=== PATIENT | female | born 2000 | race Caucasian/White ===

== ENCOUNTER 2021-11-25 12:35 | Emergency (ER) | payer SELFPAY ==
[~2021-11-25] VITALS: Ht 160 cm; Wt 105.7 kg
[2021-11-25 13:04] LABS: BILIRUBIN,URINE NEGATIVE (NEGATIVE); CLARITY,URINE CLEAR; COLOR,URINE YELLOW; GLUCOSE, URINE (UA) NEGATIVE (NEGATIVE); KETONES,URINE NEGATIVE (NEGATIVE); LEUKOCYTE ESTERASE ,URINE NEGATIVE (NEGATIVE); NITRITE,URINE NEGATIVE (NEGATIVE); PH,URINE 7.5 (5-9); PROTEIN,URINE TRACE (NEGATIVE)
[2021-11-25 13:04] LABS: BASOPHILS # (AUTO) 0.1 10^3/uL (0.0-0.1); BASOPHILS % (AUTO) 0 % (0-10); EOSINOPHILS % (AUTO) 0 % (0-10); HEMATOCRIT 44 % (35-52); HEMOGLOBIN 15.4 g/dL (11.5-16.0); LYMPHOCYTES # (AUTO) 3.5 10^3/uL (1.0-4.0); LYMPHOCYTES % (AUTO) 25 % (12-44); MEAN CORPUSCULAR HEMOGLOBIN 30 pg (25-34); MEAN CORPUSCULAR HGB CONC 35 g/dL (32-36); MEAN CORPUSCULAR VOLUME 86 fL (80-99); MEAN PLATELET VOLUME 8.8 fL (9.0-12.2); MONOCYTES # (AUTO) 0.4 10^3/uL (0.0-1.0); MONOCYTES % (AUTO) 3 % (0-12); NEUTROPHILS # (AUTO) 9.8 10^3/uL (1.8-7.8); NEUTROPHILS % (AUTO) 71 % (42-75); PLATELET COUNT 337 10^3/uL (130-400); WHITE BLOOD COUNT 13.9 10^3/uL (4.3-11.0)
[2021-11-25] MEDS ORDERED: morphine INJ 10 MG/ML 1ML (SYR OR VIAL) IVP STA (13:09)
[2021-11-25] MEDS ORDERED: ONDANSETRON 4 MG/2 ML (SDV) Z0FRAN IVP ONE (13:15)
[2021-11-25] MEDS ORDERED: NS IV 1000 ML 1,000 ML IV SCH (13:15)
[2021-11-25 13:17] LABS: BACTERIA,URINE TRACE /HPF
[2021-11-25 13:20] LABS: ALANINE AMINOTRANSFERASE 136 U/L (0-55); ALKALINE PHOSPHATASE 83 U/L (40-136); BILIRUBIN,TOTAL 0.5 MG/DL (0.1-1.0); BUN/CREATININE RATIO 24; CARBON DIOXIDE 25 MMOL/L (21-32); CHLORIDE 96 MMOL/L (98-107); CREATININE SERUM 0.51 MG/DL (0.60-1.30); GFR ESTIMATED 136; GLUCOSE 265 MG/DL (70-105); POTASSIUM 4.6 MMOL/L (3.6-5.0); SODIUM 134 MMOL/L (135-145); TOTAL PROTEIN 8.8 GM/DL (6.4-8.2)
[2021-11-25 13:21] LABS: ALBUMIN 4.9 GM/DL (3.2-4.5)
--- NOTE | 2021-11-25 13:48 | ED Abdominal Pain ---
General Chief Complaint: Abdominal/GI Problems Stated Complaint: ABD PAIN; VOMITING; DIARRHEA Nursing Triage Note: PT AMBULATE TO ROOM FS05 WITH C/O ABD PAIN STARTING AT 0500 AND N/V STARTING AT 0840 Source of Information: Patient Exam Limitations: No Limitations History of Present Illness Date Seen by Provider: Nov 25, 2021 Time Seen by Provider: 12:45 Initial Comments Patient is a 21-year-old female presents with cute onset lower abdominal pain with nausea vomiting and diarrhea starting approximately 6 hours prior to ED arrival. Pain is diffuse cramping waxes and wanes worse with palpation. Pain is moderate to severe nonradiating is nonmigratory. It is not improved with position change or movement. Patient is unable to perform position of comfort vomitus contains stomach contents. No hematemesis coffee-ground emesis. No hematochezia or melena. No fever chills or sweats. No other acute symptoms or complaints. History of sporadic irregular menstrual periods. No prior abdominal surgeries. Timing/Duration: 4-6 Hours Severity/Quality: Moderate Location: Other Radiation: Other Activities at Onset: Other Modifying Factors: Improves With Other Associated Symptoms: Other Allergies and Home Medications Allergies Coded Allergies: No Known Drug Allergies (Unverified , 11/25/21) Patient Home Medication List Home Medication List Reviewed: Yes Review of Systems Review of Systems Constitutional: see HPI EENTM: See HPI Respiratory: See HPI Cardiovascular: See HPI Gastrointestinal: See HPI Genitourinary: See HPI Musculoskeletal: see HPI Skin: see HPI Psychiatric/Neurological: See HPI Endocrine: See HPI Hematologic/Lymphatic: See HPI All Other Systems Reviewed Negative Unless Noted: No Past Rqlmeju-Bkmhfk-Xjziby Hx Patient Social History Tobacco Use?: No Smoking Status: Never a Smoker Smokeless Tobacco Frequency: Never a User Use of E-Cig and/or Vaping dev: No Use of E-Cig and/or Vaping Magdaleno: Never a User Substance use?: No Alcohol Use?: No Pt feels they are or have been: No Immunizations Up To Date COVID19 Vaccine Drums Teacher: MODERNA Physical Exam Vital Signs Vital Signs - First Documented 11/25/21 12:46 Temp 35.8 Pulse 104 Resp 19 B/P (MAP) 151/91 (111) O2 Delivery Room Air Capillary Refill : Less Than 3 Seconds Height/Weight/BMI Height: '" Weight: lbs. oz. kg; 41.00 BMI Method: General Appearance: moderate distress HEENT: PERRL/EOMI, normal ENT inspection Neck: non-tender, full range of motion Respiratory: lungs clear, normal breath sounds Cardiovascular: normal peripheral pulses, regular rate, rhythm Gastrointestinal: soft, distended, other (Moderate diffuse tenderness) Extremities: non-tender Back: normal inspection, no CVA tenderness Neurologic/Psychiatric: alert, oriented x 3 Skin: normal color Focused Exam Sepsis Stage: Ruled Out Progress/Results/Core Measures Results/Orders Lab Results Laboratory Tests Test 11/25/21 12:47 11/25/21 12:58 Range/Units Urine Color YELLOW Urine Clarity CLEAR Urine pH 7.5 5-9 Urine Specific [place] 1.020 1.016-1.022 Urine Protein TRACE H NEGATIVE Urine Glucose (UA) NEGATIVE NEGATIVE Urine Ketones NEGATIVE NEGATIVE Urine Nitrite NEGATIVE NEGATIVE Urine Bilirubin NEGATIVE NEGATIVE Urine Urobilinogen 0.2 < = 1.0 MG/DL Urine Leukocyte Esterase NEGATIVE NEGATIVE Urine RBC (Auto) TRACE-I H NEGATIVE Urine RBC 10-25 H /HPF Urine WBC NONE /HPF Urine Squamous Epithelial Cells 5-10 /HPF Urine Crystals NONE /LPF Urine Bacteria TRACE /HPF Urine Casts NONE /LPF Urine Mucus MODERATE H /LPF Urine Culture Indicated NO White Blood Count 13.9 H 4.3-11.0 10^3/uL Red Blood Count 5.10 3.80-5.11 10^6/uL Hemoglobin 15.4 11.5-16.0 g/dL Hematocrit 44 35-52 % Mean Corpuscular Volume 86 80-99 fL Mean Corpuscular Hemoglobin 30 25-34 pg Mean Corpuscular Hemoglobin Concent 35 32-36 g/dL Red Cell Distribution Width 12.4 10.0-14.5 % Platelet Count 337 130-400 10^3/uL Mean Platelet Volume 8.8 L 9.0-12.2 fL Immature Granulocyte % (Auto) 1 % Neutrophils (%) (Auto) 71 42-75 % Lymphocytes (%) (Auto) 25 12-44 % Monocytes (%) (Auto) 3 0-12 % Eosinophils (%) (Auto) 0 0-10 % Basophils (%) (Auto) 0 0-10 % Neutrophils # (Auto) 9.8 H 1.8-7.8 10^3/uL Lymphocytes # (Auto) 3.5 1.0-4.0 10^3/uL Monocytes # (Auto) 0.4 0.0-1.0 10^3/uL Eosinophils # (Auto) 0.0 0.0-0.3 10^3/uL Basophils # (Auto) 0.1 0.0-0.1 10^3/uL Immature Granulocyte # (Auto) 0.1 0.0-0.1 10^3/uL Sodium Level 134 L 135-145 MMOL/L Potassium Level 4.6 3.6-5.0 MMOL/L Chloride Level 96 L 98-107 MMOL/L Carbon Dioxide Level 25 21-32 MMOL/L Anion Gap 13 5-14 MMOL/L Blood Urea Nitrogen 12 7-18 MG/DL Creatinine 0.51 L 0.60-1.30 MG/DL Estimat Glomerular Filtration Rate 136 BUN/Creatinine Ratio 24 Glucose Level 265 H 70-105 MG/DL Calcium Level 10.0 8.5-10.1 MG/DL Corrected Calcium 8.5-10.1 MG/DL Total Bilirubin 0.5 0.1-1.0 MG/DL Aspartate Amino Transf (AST/SGOT) 142 H 5-34 U/L Alanine Aminotransferase (ALT/SGPT) 136 H 0-55 U/L Alkaline Phosphatase 83 40-136 U/L Total Protein 8.8 H 6.4-8.2 GM/DL Albumin 4.9 H 3.2-4.5 GM/DL My Orders Orders - MEDINA STEELE DO Cbc With Automated Diff (11/25/21 12:52) Comprehensive Metabolic Panel (11/25/21 12:52) Ua Culture If Indicated (11/25/21 12:52) Urine Bedside (11/25/21 12:52) Cbc With Automated Diff (11/25/21 13:09) Comprehensive Metabolic Panel (11/25/21 13:09) Morphine Injection (Morphine Injection (11/25/21 13:09) Ondansetron Injection (Zofran Injectio (11/25/21 13:15) Ns Iv 1000 Ml (Sodium Chloride 0.9%) (11/25/21 13:15) Ed Iv/Invasive Line Start (11/25/21 13:11) Medications Given in ED Current Medications Medications Dose Ordered Sig/Jack Route Start Time Stop Time Status Last Admin Dose Admin Ondansetron HCl 4 mg ONCE ONCE IVP 11/25/21 13:15 11/25/21 13:16 DC 11/25/21 13:15 4 MG Vital Signs/I&O 11/25/21 12:46 Temp 35.8 Pulse 104 Resp 19 B/P (MAP) 151/91 (111) O2 Delivery Room Air Blood Pressure Mean: 111 Departure Communication (Admissions) Patient's abdomen is soft, nonsurgical on repeat evaluation. She is resting comfortably and is pain-free. No right lower quadrant pain/tenderness. Suspect GI illness prevalent in the community. Recommendations are watchful waiting, supportive care and close PCP follow-up. Return precautions reviewed. Patient verbalizes understanding agreement discharge instructions prior to departure. Impression Primary Impression: Abdominal pain Additional Impression: Vomiting and diarrhea Disposition: HOME, SELF-CARE Condition: Stable Departure-Patient Inst. Decision time for Depature: 14:31 Referrals: GOGO ELENA MD (PCP) Primary Care Physician Patient Instructions: Nausea and Vomiting, Adult, Diarrhea, Adult ED Add. Discharge Instructions: You were evaluated in the emergency department for abdominal pain, vomiting and diarrhea. Lab was performed and is nondiagnostic. The exact cause of your symptoms has not been determined. Please go home and rest, drink clear liquids only for the next 6 to 12 hours then gradually advance to bland soft diet as tolerated. Take nausea medication as directed. Additionally, you may take Imodium OTC and Tylenol as needed for additional relief. Follow-up with your PCP in 1 to 2 days for reevaluation if symptoms persist. Return to the ED if new or worsening symptoms. All discharge instructions reviewed with patient and/or family. Voiced understanding. MEDINA STEELE DO Nov 25, 2021 13:47
[2021-11-25] MEDS ORDERED: ONDA4TAB11 PO (14:36)
[2021-11-25 14:55] VITALS: BP 134/76
== END 2021-11-25 14:55 | disposition home or self-care (01) ==
LOC: EDUNIT# 12:35 → ER FS 12:37
DX: R10.84 Generalized abdominal pain (principal); R19.7 Diarrhea, unspecified; R11.2 Nausea with vomiting, unspecified
CPT/HCPCS: 36415; 80053; 81000; 84703; 85025

== ENCOUNTER → 2022-03-01 | Outpatient (CLI) | payer OTHER ==
[~2022-03-01] MED LIST: CATHETER FLUSH 10 ML SYR IVP PRN; ONDA4TAB11 PO
--- NOTE | 2022-03-01 12:14 | Diagnostic Imaging Report ---
Indication: Right upper quadrant pain. Patient was a hoop maker 5.1 mCi technetium 99m Choletec intravenously and imaging over the abdomen was performed. At 60 minutes, the patient ingested 8 ounces Ensure and a gallbladder ejection fraction was calculated. There is homogeneous uptake of activity by the liver with prompt excretion of activity into the gallbladder and common duct. There is normal passage of activity into the small bowel. Gallbladder ejection fraction is normal at 50%. There does appear to be some activity within the stomach consistent with bile reflux. IMPRESSION: 1. Patent cystic duct and common bile duct. 2. Normal gallbladder ejection fraction of 50%. 3. Gastric activity consistent with bile reflux. Dictated by: Dictated on workstation # [id number]
== END ==
LOC: CARD 07:51
PROVIDERS: ATTEND Family Medicine
DX: R10.11 Right upper quadrant pain (principal)
CPT/HCPCS: 78227; A9537

== ENCOUNTER 2022-05-01 14:53 | Emergency (ER) | payer OTHER ==
[~2022-05-01] VITALS: Ht 160 cm; Wt 98.0 kg
[~2022-05-01 14:53] MED LIST changes: -CATHETER FLUSH 10 ML SYR IVP PRN
[2022-05-01 16:06] LABS: BASOPHILS # (AUTO) 0.1 10^3/uL (0.0-0.1); BASOPHILS % (AUTO) 1 % (0-10); EOSINOPHILS # (AUTO) 0.1 10^3/uL (0.0-0.3); EOSINOPHILS % (AUTO) 1 % (0-10); HEMATOCRIT 42 % (35-52); HEMOGLOBIN 14.7 g/dL (11.5-16.0); LYMPHOCYTES # (AUTO) 4.4 10^3/uL (1.0-4.0); LYMPHOCYTES % (AUTO) 37 % (12-44); MEAN CORPUSCULAR HEMOGLOBIN 30 pg (25-34); MEAN CORPUSCULAR HGB CONC 35 g/dL (32-36); MEAN CORPUSCULAR VOLUME 85 fL (80-99); MEAN PLATELET VOLUME 8.8 fL (9.0-12.2); MONOCYTES # (AUTO) 0.5 10^3/uL (0.0-1.0); MONOCYTES % (AUTO) 5 % (0-12); NEUTROPHILS # (AUTO) 6.7 10^3/uL (1.8-7.8); NEUTROPHILS % (AUTO) 56 % (42-75); PLATELET COUNT 286 10^3/uL (130-400); WHITE BLOOD COUNT 11.8 10^3/uL (4.3-11.0)
--- NOTE | 2022-05-01 16:08 | ED General ---
General Chief Complaint: Ear Problems Stated Complaint: LT EAR PAIN; DIZZINESS Nursing Triage Note: PT REPORTS EAR ISSUES AND DIZZINESS FOR 2 YEARS. Source of Information: Patient Exam Limitations: No Limitations (MONI HENDRICKS) History of Present Illness Date Seen by Provider: May 01, 2022 Time Seen by Provider: 15:12 Initial Comments This is a 22yo F with pmhx of DM, PCOS, and migraines who presents for left ear pain and "dizziness". Pt reports Lt ear pain for the past 3-4 days which is a dull ache. Endorses seeing "blue sparkles", nausea, headache, left eye pain, and shortness of air. Denies drainage from the ears, fever. Patient's "Dizziness" is clarified, and patient reports the feeling of lightheadedness and her body feeling light. She denies vertigo or dysequilibrium. This his been an issue for the past 2 years which she has been to urgent care and her PCP in the past for these symptoms with no reported workup and no resolution of symptoms. Patient's lightheadedness "hit her hard" to the point today that she did not feel comfortable driving or doing daily activities, felt as though she could have dropped and passed out. Endorses near syncope, denies syncopal events. Pt r eports that she will occasionally feel palpitations. At this moment, patient endorses left sided unilateral headache and left sided weakness. Timing/Duration: Other (Lt Ear pain x3-4d, Dizziness x2yr) Severity: Severe Associated Systoms: No Chest Pain, No Cough, No Diaphoresis, No Fever/Chills; Headaches, Nausea/Vomiting (endorse nausea, denies vomiting), Shortness of Air (MONI HENDRICKS) Initial Comments Patient reports she has had the symptoms in the past but this is her most significant episode. She occasionally feels lightheaded upon standing and sometimes has palpitations. She tends to have some variation of these events daily. Today on my exam she is noted to have very subtle left-sided decrease in strength, particularly with education program specialist and with flexion at the knee. Onset of symptoms was early this morning. (SAHIL MORGAN MD) Allergies and Home Medications Allergies Coded Allergies: No Known Drug Allergies (Unverified , 11/25/21) Patient Home Medication List Home Medication List Reviewed: Yes (SAHIL MORGAN MD) Ondansetron (Ondansetron Odt) 4 Mg Tab.rapdis, 4 MG PO Q6H Prescribed by: MEDINA STEELE on 11/25/21 1436 Review of Systems Review of Systems Constitutional: No chills, No diaphoresis, No dizziness; weakness (left upper and lower extremity), other (lightheadedness) Respiratory: No cough; short of breath Cardiovascular: No chest pain, No Hx of Intervention; palpitations Gastrointestinal: no symptoms reported (MONI HENDRICKS) EENTM: see HPI Genitourinary: no symptoms reported : No Musculoskeletal: see HPI Psychiatric/Neurological: See HPI (SAHIL MORGAN MD) Past Cuprdpm-Unsyjo-Ballrg Hx Patient Social History Tobacco Use?: No Use of E-Cig and/or Vaping dev: No Substance use?: No Alcohol Use?: No Pt feels they are or have been: No (MONI HENDRICKS) Past Medical History Neurological: Yes Headaches /Migraines Reproductive Disorders: Yes Female Reproductive Disorders: Polycystic Ovarian Dis Endocrine: Yes Diabetes, Non-Insulin dep (SAHIL MORGAN MD) Physical Exam Vital Signs Vital Signs - First Documented 05/01/22 15:09 Temp 36.3 Pulse 84 Resp 16 B/P (MAP) 141/85 (103) Pulse Ox 99 O2 Delivery Room Air (SAHIL MORGAN MD) Vital Signs Capillary Refill : Less Than 3 Seconds (MONI HENDRICKS) Height, Weight, BMI Height: '" Weight: lbs. oz. kg; 38.00 BMI Method: General Appearance: No Apparent Distress, WD/WN, Obese HEENT: PERRL/EOMI, TMs Normal, Normal ENT Inspection, Pharynx Normal Respiratory: Chest Non Tender, Lungs Clear, Normal Breath Sounds, No Accessory Muscle Use, No Respiratory Distress Cardiovascular: Regular Rate, Rhythm, No Edema, No Murmur, Normal Peripheral Pulses Gastrointestinal: Normal Bowel Sounds, No Organomegaly, No Pulsatile Mass, Non Tender, Soft Extremity: Normal Capillary Refill, Normal Inspection, Normal Range of Motion, Non Tender, No Calf Tenderness Neurologic/Psychiatric: Alert, Oriented x3, Normal Mood/Affect, 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 Norm as Tested, Motor Weakness (slight weakness of left knee flexion and left hand education program specialist strength), Other (Negative romberg test, heel to kimble, and finger to nose) Skin: Normal Color, Warm/Dry (MONI HENDRICKS) Progress/Results/Core Measures Suspected Sepsis SIRS Temperature: Pulse: 84 Respiratory Rate: 16 Blood Pressure 141 /85 Mean: 103 (MONI HENDRICKS) Results/Orders Lab Results Laboratory Tests Test 05/01/22 15:06 05/01/22 15:30 Range/Units Urine Color YELLOW Urine Clarity SL CLOUDY Urine pH 6.5 5-9 Urine Specific [place] 1.020 1.016-1.022 Urine Protein NEGATIVE NEGATIVE Urine Glucose (UA) NEGATIVE NEGATIVE Urine Ketones NEGATIVE NEGATIVE Urine Nitrite NEGATIVE NEGATIVE Urine Bilirubin NEGATIVE NEGATIVE Urine Urobilinogen 0.2 < = 1.0 MG/DL Urine Leukocyte Esterase NEGATIVE NEGATIVE Urine RBC (Auto) NEGATIVE NEGATIVE Urine RBC NONE /HPF Urine WBC 0-2 /HPF Urine Squamous Epithelial Cells 5-10 /HPF Urine Crystals NONE /LPF Urine Bacteria MODERATE H /HPF Urine Casts NONE /LPF Urine Mucus MODERATE H /LPF Urine Culture Indicated NO White Blood Count 11.8 H 4.3-11.0 10^3/uL Red Blood Count 4.87 3.80-5.11 10^6/uL Hemoglobin 14.7 11.5-16.0 g/dL Hematocrit 42 35-52 % Mean Corpuscular Volume 85 80-99 fL Mean Corpuscular Hemoglobin 30 25-34 pg Mean Corpuscular Hemoglobin Concent 35 32-36 g/dL Red Cell Distribution Width 13.0 10.0-14.5 % Platelet Count 286 130-400 10^3/uL Mean Platelet Volume 8.8 L 9.0-12.2 fL Immature Granulocyte % (Auto) 0 % Neutrophils (%) (Auto) 56 42-75 % Lymphocytes (%) (Auto) 37 12-44 % Monocytes (%) (Auto) 5 0-12 % Eosinophils (%) (Auto) 1 0-10 % Basophils (%) (Auto) 1 0-10 % Neutrophils # (Auto) 6.7 1.8-7.8 10^3/uL Lymphocytes # (Auto) 4.4 H 1.0-4.0 10^3/uL Monocytes # (Auto) 0.5 0.0-1.0 10^3/uL Eosinophils # (Auto) 0.1 0.0-0.3 10^3/uL Basophils # (Auto) 0.1 0.0-0.1 10^3/uL Immature Granulocyte # (Auto) 0.0 0.0-0.1 10^3/uL Sodium Level 141 135-145 MMOL/L Potassium Level 3.9 3.6-5.0 MMOL/L Chloride Level 102 98-107 MMOL/L Carbon Dioxide Level 26 21-32 MMOL/L Anion Gap 13 5-14 MMOL/L Blood Urea Nitrogen 14 7-18 MG/DL Creatinine 0.61 0.60-1.30 MG/DL Estimat Glomerular Filtration Rate 130 BUN/Creatinine Ratio 23 Glucose Level 148 H 70-105 MG/DL Calcium Level 9.8 8.5-10.1 MG/DL Corrected Calcium 8.5-10.1 MG/DL Magnesium Level 1.9 1.6-2.4 MG/DL Total Bilirubin 0.4 0.1-1.0 MG/DL Aspartate Amino Transf (AST/SGOT) 101 H 5-34 U/L Alanine Aminotransferase (ALT/SGPT) 129 H 0-55 U/L Alkaline Phosphatase 82 40-136 U/L Total Protein 8.0 6.4-8.2 GM/DL Albumin 4.7 H 3.2-4.5 GM/DL Serum Test, Qualitative NEGATIVE NEGATIVE (SAHIL MORGAN MD) My Orders Orders - SAHIL MORGAN MD Orthostatic Vital Signs (Adult (05/01/22 15:42) Cbc With Automated Diff (05/01/22 15:55) Comprehensive Metabolic Panel (05/01/22 15:55) Hcg,Qualitative Serum (05/01/22 15:55) Magnesium (05/01/22 15:55) Thyroid Analyzer (05/01/22 15:55) Ua Culture If Indicated (05/01/22 15:55) Ed Iv/Invasive Line Start (05/01/22 15:55) Ekg Tracing (05/01/22 15:55) Ct Head Wo (05/01/22 16:41) Ketorolac Injection (Toradol Injection) (05/01/22 17:45) (SAHIL MORGAN MD) Medications Given in ED Current Medications Medications Dose Ordered Sig/Jack Route Start Time Stop Time Status Last Admin Dose Admin Ketorolac Tromethamine 30 mg ONCE ONCE IVP 05/01/22 17:45 05/01/22 17:39 DC 05/01/22 17:39 30 MG (SAHIL MORGAN MD) Vital Signs/I&O 05/01/22 05/01/22 05/01/22 15:09 16:11 17:32 Temp 36.3 36.3 Pulse 84 82 84 88 97 Resp 16 16 B/P (MAP) 141/85 (103) 115/64 (81) 131/49 131/77 (95) 130/75 (93) Pulse Ox 99 99 O2 Delivery Room Air Room Air (SAHIL MORGAN MD) Vital Signs/I&O Capillary Refill : Less Than 3 Seconds (MONI HENDRICKS) Blood Pressure Mean: 103 Progress Note : Progress Note Patient was interviewed and examined. Orthostatic blood pressures were unremark able as follows: Lying 115/64, heart rate 82 Sitting 131/77, heart rate 88 Standing 130/75, heart rate 97 EKG was also reviewed and interpreted by me and unremarkable. Labs were obtained including CBC, CMP, magnesium, test, and urinalysis. All labs were interpreted as relatively unremarkable in regard to evaluation of her symptoms. Because of the subtle weakness noted on my exam, CT of the head was obtained. CT was unremarkable. Patient was treated with Toradol. She is ultimately discharged to outpatient follow-up. Her symptoms likely represent an atypical migraine. (SAHIL MORGAN MD) ECG Initial ECG Impression Date: May 01, 2022 Initial ECG Impression Time: 15:59 Initial ECG Rate: 84 Initial ECG Rhythm: Normal Sinus Initial ECG Intervals: Normal Initial ECG Impression: Normal Comment Normal sinus rhythm with no ST elevation or depression. No abnormal intervals or axis deviation. (SAHIL MORGAN MD) Diagnostic Imaging Diagonstic Imaging: CT Plain Films/CT/US/NM/MRI: head Comments NAME: JANETT SMALL MED REC#: [id number] PT STATUS: DEP ER : 2000 PHYSICIAN: SAHIL MORGAN MD ADMIT DATE: 05/01/22/ER FS Signed Date of Exam:05/01/22 CT HEAD WO INDICATION: Left-sided weakness. TECHNIQUE: Multiple contiguous axial images were obtained through the brain without the use of intravenous contrast. Auto Exposure Controls were utilized during the CT exam to meet ALARA standards for radiation dose reduction. COMPARISON: There is no prior CT for comparison. FINDINGS: There is no extra-axial fluid collection. No intracranial hemorrhage. No intracranial mass or mass effect. No midline shift. The ventricles are normal in size and position. There are no focal parenchymal abnormalities in the brain. Calvarial windows are unremarkable. IMPRESSION: Negative noncontrast brain CT. Dictated by: Dictated on workstation # [id number] Dict: 05/01/22 1659 Trans: 05/01/221737 PJE [id number] Interpreted by: MEGAN KIM MD Electronically signed by: MEGAN KIM MD 05/01/221737 (SAHIL MORGAN MD) Departure Impression Primary Impression: Headache Qualified Codes: R51.9 - Headache, unspecified Additional Impressions: Left-sided weakness Lightheadedness Disposition: 01 HOME, SELF-CARE Condition: Stable Departure-Patient Inst. Referrals: GOGO ELENA MD (PCP) Primary Care Physician Patient Instructions: Headache, Adult Add. Discharge Instructions: Follow-up with your primary care provider soon as possible. No specific diagnosis was identified in the emergency room today. It is possible you are having an atypical migraine. Discuss further work-up with your primary care provider. Some options for further work-up might include MRI of the brain, vitamin D level, neurology consult, etc. A thyroid function lab was drawn in the emergency room and was pending at the time of discharge. Please review with your primary care provider. For acute headaches you may take ibuprofen up to 600 mg every 6 hours as needed. You may also take Tylenol (acetaminophen) up to 1000 mg every 6 hours as needed. Drink plenty of clear liquids to stay well-hydrated. Eat a well-balanced diet. Return to the emergency room if you have worsening symptoms despite following these instructions. All discharge instructions reviewed with patient and/or family. Voiced understanding. Medical Student Attestation and Attending Note: I have personally interviewed and examined this patient along with Moni Hendricks, MS 4. I have reviewed student documentation including history, physical, and assessments. I agree with the documentation except where otherwise noted. Exam: General: Alert, oriented, no acute distress, well developed HEENT: Normocephalic and atraumatic, mucous membranes moist, normal tympanic membranes Heart: Regular rate and rhythm without murmur Lungs: Clear to auscultation bilaterally with normal effort Abdomen: Soft, nontender, nondistended, normal bowel sounds Neuropsych: Alert, oriented, normal [id number] and [id number], very subtle weakness of left education program specialist and left leg flexion at the knee in relation to the right, normal speech and hearing Skin: Warm and dry without rashes (SAHIL MORGAN MD) Copy Copies To 1: GOGO ELENA MD, ABRAHAM May 01, 2022 16:08 SAHIL MORGAN MD May 01, 2022 16:21
[2022-05-01 16:11] VITALS: BP_SYST 115; BP_SYST 130; BP_SYST 131; BP_DIAS 64; BP_DIAS 75; BP_DIAS 77
[2022-05-01 16:19] LABS: BILIRUBIN,URINE NEGATIVE (NEGATIVE); CLARITY,URINE SL CLOUDY; COLOR,URINE YELLOW; GLUCOSE, URINE (UA) NEGATIVE (NEGATIVE); KETONES,URINE NEGATIVE (NEGATIVE); LEUKOCYTE ESTERASE ,URINE NEGATIVE (NEGATIVE); NITRITE,URINE NEGATIVE (NEGATIVE); PH,URINE 6.5 (5-9); PROTEIN,URINE NEGATIVE (NEGATIVE)
[2022-05-01 16:28] LABS: BACTERIA,URINE MODERATE /HPF; WBC,URINE 0-2 /HPF
[2022-05-01 16:31] LABS: SODIUM 141 MMOL/L (135-145)
[2022-05-01 16:32] LABS: ALANINE AMINOTRANSFERASE 129 U/L (0-55); ALBUMIN 4.7 GM/DL (3.2-4.5); ALKALINE PHOSPHATASE 82 U/L (40-136); BILIRUBIN,TOTAL 0.4 MG/DL (0.1-1.0); BUN/CREATININE RATIO 23; CALCIUM 9.8 MG/DL (8.5-10.1); CARBON DIOXIDE 26 MMOL/L (21-32); CHLORIDE 102 MMOL/L (98-107); CREATININE SERUM 0.61 MG/DL (0.60-1.30); GFR ESTIMATED 130; GLUCOSE 148 MG/DL (70-105); MAGNESIUM 1.9 MG/DL (1.6-2.4); POTASSIUM 3.9 MMOL/L (3.6-5.0)
--- NOTE | 2022-05-01 17:04 | Diagnostic Imaging Report ---
INDICATION: Left-sided weakness. TECHNIQUE: Multiple contiguous axial images were obtained through the brain without the use of intravenous contrast. Auto Exposure Controls were utilized during the CT exam to meet ALARA standards for radiation dose reduction. COMPARISON: There is no prior CT for comparison. FINDINGS: There is no extra-axial fluid collection. No intracranial hemorrhage. No intracranial mass or mass effect. No midline shift. The ventricles are normal in size and position. There are no focal parenchymal abnormalities in the brain. Calvarial windows are unremarkable. IMPRESSION: Negative noncontrast brain CT. Dictated by: Dictated on workstation # [id number]
[2022-05-01 17:32] VITALS: BP 131/49
[2022-05-01] MEDS ORDERED: KETOROLAC 30 MG/ML VIAL IVP ONE (17:45)
[2022-05-02 14:57] LABS: TSH (THYROID ANALYZER) 0.88 UIU/ML (0.35-4.94)
== END 2022-05-01 17:39 | disposition home or self-care (01) ==
LOC: EDUNIT# 14:53 → ER FS 14:56
DX: R42 Dizziness and giddiness (principal); R53.1 Weakness; R51.9 Headache, unspecified
CPT/HCPCS: 36415; 70450; 80053; 81000; 83735; 84443; 84703; 85025; 93005

== ENCOUNTER → 2022-05-15 | Outpatient (CLI) | payer OTHER | LOC: CARD 11:48 | PROVIDERS: ATTEND Family Medicine | DX: R55 Syncope and collapse (principal) | CPT/HCPCS: 93225; 93226 ==

== ENCOUNTER 2022-06-21 22:40 | Emergency (ER) | payer OTHER ==
--- NOTE | 2022-06-21 22:56 | ED EENT ---
History of Present Illness General Chief Complaint: Ear Problems Stated Complaint: LEFT EAR ACHE History of Present Illness Date Seen by Provider: Jun 21, 2022 Time Seen by Provider: 22:54 Initial Comments 22-year-old female is here with complaints of left-sided tooth pain and left- sided ear pain. Patient went to the dentist 2 days ago and had x-rays done and was told that she would be called back to have her tooth extracted. Patient started to have left ear pain since then. Patient is crying and hysterical, and anxious. Patient's boyfriend is giving the history since patient is crying and will not talk. Denies fever and chills, foreign body or insects in the ear. Allergies and Home Medications Allergies Coded Allergies: No Known Drug Allergies (Unverified , 11/25/21) Patient Home Medication List Home Medication List Reviewed: Yes Ondansetron (Ondansetron Odt) 4 Mg Tab.rapdis, 4 MG PO Q6H Prescribed by: MEDINA STEELE on 11/25/21 7510 Review of Systems Review of Systems Constitutional: no symptoms reported Eyes: No Symptoms Reported Ears: See HPI, Pain Nose: no symptoms reported Mouth: see HPI, other (Dental) Throat: no symptoms reported Respiratory: no symptoms reported Cardiovascular: no symptoms reported Gastrointestinal: no symptoms reported Musculoskeletal: no symptoms reported Skin: no symptoms reported Neurological: No Symptoms Reported Hematologic/Lymphatic: No Symptoms Reported Immunological/Allergic: no symptoms reported Past Dtbdhru-Csqhaq-Funaxv Hx Patient Social History Tobacco Use?: No Use of E-Cig and/or Vaping dev: No Substance use?: No Alcohol Use?: No Pt feels they are or have been: No Past Medical History Neurological: Yes Headaches /Migraines Reproductive Disorders: Yes Female Reproductive Disorders: Polycystic Ovarian Dis Endocrine: Yes Diabetes, Non-Insulin dep Physical Exam Vital Signs Vital Signs - First Documented 06/21/22 22:47 Temp 37.3 Pulse 114 Resp 20 B/P (MAP) 178/142 (154) Pulse Ox 98 O2 Delivery Room Air Height, Weight, BMI Height: '" Weight: lbs. oz. kg; 38.00 BMI Method: General Appearance: WD/WN, no apparent distress, moderate distress, obese Ears: bilateral ear auricle normal, bilateral ear canal normal, bilateral ear TM normal Nose: normal inspection Mouth/Throat: dental tenderness (Impacted wisdom tooth on the left upper side, no dental caries seen) Neck: non-tender, full range of motion, supple Cardiovascular: regular rate, rhythm Respiratory: lungs clear Neurologic/Psychiatric: alert, oriented x 3, other (Patient is hysterical and crying) Skin: normal color Progress/Results/Core Measures Results/Orders My Orders Orders - EDMAR DELATORRE MD Ketorolac Injection (Toradol Injection) (06/21/22 23:15) Vital Signs/I&O 06/21/22 22:47 Temp 37.3 Pulse 114 Resp 20 B/P (MAP) 178/142 (154) Pulse Ox 98 O2 Delivery Room Air Progress Progress Note : Progress Note 1. IMPACTED WISDOM TOOTH: - Ear exam is normal - Toradol im STAT -Advised to take ibuprofen and Tylenol, and follow-up with a dentist as soon as possible Departure Impression Primary Impression: Impacted tooth Disposition: HOME, SELF-CARE Condition: Stable Departure-Patient Inst. Referrals: GOGO ELENA MD (PCP/Family) Primary Care Physician Patient Instructions: Dental Pain (DC), Impacted Tooth Add. Discharge Instructions: Follow-up with dentist ARTEMIO Tylenol and ibuprofen as needed for pain All discharge instructions reviewed with patient and/or family. Voiced understanding. EDMAR DELTAORRE MD Jun 21, 2022 22:56
[2022-06-21] MEDS ORDERED: KETOROLAC 30 MG/ML VIAL IM ONE (23:15)
[2022-06-21 23:16] VITALS: BP 178/142
== END 2022-06-21 23:17 | disposition home or self-care (01) ==
LOC: EDUNIT# 22:40 → ER FS 22:44
DX: K01.1 Impacted teeth (principal); Z28.310 Unvaccinated for COVID-19
CPT/HCPCS: 99284

== ENCOUNTER 2022-11-28 00:45 | Emergency (ER) | payer OTHER ==
[~2022-11-28] VITALS: Ht 160 cm; Wt 96.4 kg
[2022-11-28] MEDS ORDERED: PANTOPRAZOLE 40 MG (PROTONIX) VIAL IV ONE (01:15)
[2022-11-28] MEDS ORDERED: ONDANSETRON 4 MG/2 ML (SDV) Z0FRAN IVP ONE (01:15)
--- NOTE | 2022-11-28 01:15 | ED Abdominal Pain ---
General Chief Complaint: Abdominal/GI Problems Stated Complaint: STOMACH PAIN Nursing Triage Note: Patient ambulatory to room FS06 c/o epigastic pain. Patient states the pain started yesterday. hx of diabetes Pain "comes and goes every 30 seconds." denies having any fever, diarrhea, or vomitting. Patient is nauseous. Patient states she has had this pain before but can't remember what it was or what they gave her to make it better. Source of Information: Patient, Old Records Exam Limitations: No Limitations History of Present Illness Date Seen by Provider: Nov 28, 2022 Time Seen by Provider: 00:05 Initial Comments This 22-year-old young lady presents to the emergency room by private vehicle with concerns about intense epigastric pain since yesterday. It tends to come in waves. She denies any fever, diarrhea, or vomiting. She does have some associated nausea. Pain is described as a burning sensation. She denies . She denies prior episodes before today, but it is noted in the chart that she has had a negative hepatobiliary scan last February. Vital signs are unremarkable. Patient is moaning and groaning in discomfort. Allergies and Home Medications Allergies Coded Allergies: No Known Drug Allergies (Unverified , 11/25/21) Patient Home Medication List Home Medication List Reviewed: Yes Ondansetron (Ondansetron Odt) 4 Mg Tab.rapdis, 4 MG PO Q6H Prescribed by: MEDINA STEELE on 11/25/21 1516 Ondansetron (Ondansetron Odt) 4 Mg Tab.rapdis, 4 MG SL Q4H PRN for NAUSEA/VOMITING Prescribed by: SAHIL GARRISON on 11/28/22 0334 Pantoprazole Sodium (Protonix) 40 Mg Tablet.dr, 40 MG PO DAILY Prescribed by: SAHIL GARRISON on 11/28/22 0334 Review of Systems Review of Systems Constitutional: no symptoms reported EENTM: No Symptoms Reported Respiratory: No Symptoms Reported Cardiovascular: No Symptoms Reported Gastrointestinal: See HPI Genitourinary: No Symptoms Reported Musculoskeletal: no symptoms reported Skin: no symptoms reported Psychiatric/Neurological: No Symptoms Reported Endocrine: No Symptoms Reported Past Tfqgkaz-Fdoygg-Habsxg Hx Patient Social History Tobacco Use?: No Substance use?: No Alcohol Use?: No Past Medical History Surgeries: No Respiratory: No Cardiac: No Neurological: Yes Headaches /Migraines Reproductive Disorders: Yes Female Reproductive Disorders: Polycystic Ovarian Dis Genitourinary: No Gastrointestinal: No Musculoskeletal: No Endocrine: Yes Diabetes, Non-Insulin dep Cancer: No Psychosocial: No Physical Exam Vital Signs Vital Signs - First Documented 11/28/22 00:50 Temp 36.0 Pulse 99 Resp 18 B/P (MAP) 122/76 (91) Pulse Ox 98 O2 Delivery Room Air Capillary Refill : Less Than 3 Seconds Height/Weight/BMI Height: '" Weight: lbs. oz. kg; 37.00 BMI Method: General Appearance: WD/WN, mild distress, obese HEENT: normal ENT inspection Neck: normal inspection Respiratory: lungs clear, normal breath sounds, no respiratory distress Cardiovascular: regular rate, rhythm, no edema, no murmur Gastrointestinal: normal bowel sounds, soft; No distended; tenderness (epigastric) Extremities: normal inspection, no pedal edema Neurologic/Psychiatric: alert, normal mood/affect, oriented x 3 Skin: normal color, warm/dry Progress/Results/Core Measures Results/Orders Lab Results Laboratory Tests Test 11/28/22 01:15 Range/Units White Blood Count 13.0 H 4.3-11.0 10^3/uL Red Blood Count 4.77 3.80-5.11 10^6/uL Hemoglobin 14.3 11.5-16.0 g/dL Hematocrit 43 35-52 % Mean Corpuscular Volume 90 80-99 fL Mean Corpuscular Hemoglobin 30 25-34 pg Mean Corpuscular Hemoglobin Concent 33 32-36 g/dL Red Cell Distribution Width 12.8 10.0-14.5 % Platelet Count 327 130-400 10^3/uL Mean Platelet Volume 8.7 L 9.0-12.2 fL Immature Granulocyte % (Auto) 1 % Neutrophils (%) (Auto) 56 42-75 % Lymphocytes (%) (Auto) 37 12-44 % Monocytes (%) (Auto) 5 0-12 % Eosinophils (%) (Auto) 1 0-10 % Basophils (%) (Auto) 1 0-10 % Neutrophils # (Auto) 7.2 1.8-7.8 10^3/uL Lymphocytes # (Auto) 4.7 H 1.0-4.0 10^3/uL Monocytes # (Auto) 0.7 0.0-1.0 10^3/uL Eosinophils # (Auto) 0.2 0.0-0.3 10^3/uL Basophils # (Auto) 0.1 0.0-0.1 10^3/uL Immature Granulocyte # (Auto) 0.1 0.0-0.1 10^3/uL Sodium Level 140 135-145 MMOL/L Potassium Level 4.5 3.6-5.0 MMOL/L Chloride Level 102 98-107 MMOL/L Carbon Dioxide Level 27 21-32 MMOL/L Anion Gap 11 5-14 MMOL/L Blood Urea Nitrogen 13 7-18 MG/DL Creatinine 0.60 0.60-1.30 MG/DL Estimat Glomerular Filtration Rate 130 BUN/Creatinine Ratio 22 Glucose Level 163 H 70-105 MG/DL Calcium Level 9.8 8.5-10.1 MG/DL Corrected Calcium 9.4 8.5-10.1 MG/DL Total Bilirubin 0.3 0.1-1.0 MG/DL Aspartate Amino Transf (AST/SGOT) 55 H 5-34 U/L Alanine Aminotransferase (ALT/SGPT) 76 H 0-55 U/L Alkaline Phosphatase 81 40-136 U/L C-Reactive Protein 2.19 H <0.50 MG/DL Total Protein 8.1 6.4-8.2 GM/DL Albumin 4.5 3.2-4.5 GM/DL Lipase 29 8-78 U/L Serum Test, Qualitative NEGATIVE NEGATIVE My Orders Orders - SAHIL MORGAN MD Ondansetron Injection (Zofran Injectio (11/28/22 01:15) Pantoprazole Injection (Protonix Injecti (11/28/22 01:15) Cbc With Automated Diff (11/28/22 01:15) Comprehensive Metabolic Panel (11/28/22 01:15) Hcg,Qualitative Serum (11/28/22 01:15) Lipase (11/28/22 01:15) Ed Iv/Invasive Line Start (11/28/22 01:15) Crp Fs (11/28/22 01:15) Lidocaine 2% Viscous 15 Ml (Xylocaine Vi (11/28/22 02:15) Antacid Suspension (Antacid Suspension (11/28/22 02:15) Medications Given in ED Vital Signs/I&O 11/28/22 11/28/22 00:50 03:36 Temp 36.0 Pulse 99 93 Resp 18 20 B/P (MAP) 122/76 (91) 129/79 Pulse Ox 98 97 O2 Delivery Room Air Room Air Blood Pressure Mean: 91 Progress Progress Note #1: Time: 01:22 Progress Note Patient was interviewed and examined. GI cocktail was offered. Patient reports she has received GI cocktail in the past that has caused nausea and was unpleasant to drink. She is refusing to try a GI cocktail at this time. As an alternative, treatment with IV zofran and protonix are being given and work-up with labs is being pursued. Progress Note #2: Time: 03:26 Progress Note Zofran and Protonix were administered. This did not improve her pain much. Labs were obtained including CBC, CMP, lipase, and serum test. CBC was remarkable for mild leukocytosis of 13 which is consistent with her prior labs when compared. CMP demonstrated mild elevation in transaminases but not elevated in comparison with her baseline. Blood sugar was mildly elevated consistent with her diabetes. Serum test was negative. Lipase was normal. Labs were reviewed and interpreted by me. Patient did eventually consent to treatment with GI cocktail as she did not improve significantly with other treatments. Patient reports her pain of 10/10 completely resolved after GI cocktail. Potential causes of her pain were reviewed. Discharge instructions were discussed. Departure Impression Primary Impression: Epigastric pain Additional Impression: Nausea Disposition: 01 HOME, SELF-CARE Condition: Improved Departure-Patient Inst. Decision time for Depature: 03:29 Referrals: GOGO ELENA MD (PCP/Family) Primary Care Physician Patient Instructions: Abdominal Pain, Adult ED, Acid Reflux and GERD in Adults (DC), Gastritis ED Add. Discharge Instructions: The definitive cause of your abdominal pain is uncertain but is likely related to gastritis and/or esophagitis based on your response to the GI cocktail administered in the ER. Start Protonix as prescribed and continue until otherwise instructed, even if your symptoms improved. Avoid the following: Eating large meals, eating close to bedtime, caffeine, carbonation, chocolate, citrus fruits and juices, tomato products, mints, spicy foods, alcohol, tobacco, NSAID medications such as ibuprofen or naproxen, fatty or greasy foods, and anything else you know irritates your stomach. Elevating your head and shoulders when sleeping at night should help reduce acid reflux. Weight loss to reduce pressure on your abdomen should also help reduce the symptoms. To treat episodes of abdominal pain, take Tylenol (acetaminophen) up to 1000 mg every 6 hours and/or Tums (or generic equivalent) according to package instructions. You may take Zofran as prescribed for nausea and vomiting. Schedule an appointment with your primary care provider. If you are having s ymptoms that persist beyond 1 to 2 weeks despite following these instructions, you should consider referral for endoscopy. Return to the emergency room if you have worsening symptoms despite following these instructions. You should expect some return of pain, but your pain should be gradually improving over the next several days. All discharge instructions reviewed with patient and/or family. Voiced understanding. Scripts Ondansetron (Ondansetron Odt) 4 Mg Tab.rapdis 4 MG SL Q4H PRN for NAUSEA/VOMITING, #10 TAB Prov: SAHIL MORGAN MD 11/28/22 Pantoprazole Sodium (Protonix) 40 Mg Tablet.dr 40 MG PO DAILY, #30 TAB Prov: SAHIL MORGAN MD 11/28/22 Copy Copies To 1: GOGO ELENA MD, JOSHUA T MD Nov 28, 2022 01:15
[2022-11-28 01:34] LABS: BASOPHILS # (AUTO) 0.1 10^3/uL (0.0-0.1); BASOPHILS % (AUTO) 1 % (0-10); EOSINOPHILS # (AUTO) 0.2 10^3/uL (0.0-0.3); EOSINOPHILS % (AUTO) 1 % (0-10); HEMATOCRIT 43 % (35-52); HEMOGLOBIN 14.3 g/dL (11.5-16.0); LYMPHOCYTES # (AUTO) 4.7 10^3/uL (1.0-4.0); LYMPHOCYTES % (AUTO) 37 % (12-44); MEAN CORPUSCULAR HEMOGLOBIN 30 pg (25-34); MEAN CORPUSCULAR HGB CONC 33 g/dL (32-36); MEAN CORPUSCULAR VOLUME 90 fL (80-99); MEAN PLATELET VOLUME 8.7 fL (9.0-12.2); MONOCYTES # (AUTO) 0.7 10^3/uL (0.0-1.0); MONOCYTES % (AUTO) 5 % (0-12); NEUTROPHILS # (AUTO) 7.2 10^3/uL (1.8-7.8); NEUTROPHILS % (AUTO) 56 % (42-75); PLATELET COUNT 327 10^3/uL (130-400)
[2022-11-28 01:57] LABS: BILIRUBIN,TOTAL 0.3 MG/DL (0.1-1.0); CALCIUM 9.8 MG/DL (8.5-10.1); CREATININE SERUM 0.6 MG/DL (0.60-1.30); POTASSIUM 4.5 MMOL/L (3.6-5.0)
[2022-11-28 01:58] LABS: ALBUMIN 4.5 GM/DL (3.2-4.5); TOTAL PROTEIN 8.1 GM/DL (6.4-8.2)
[2022-11-28] MEDS ORDERED: ANTACID SUSPENSION 30 ML UDC PO ONE (02:15)
[2022-11-28] MEDS ORDERED: LIDOCAINE 2% VISCOUS 15 ML UDC PO ONE (02:15)
[2022-11-28] MEDS ORDERED: PANT40TA2 PO (03:34)
[2022-11-28] MEDS ORDERED: ONDA4TAB11 SL (03:34)
[2022-11-28 03:36] VITALS: BP 129/79
== END 2022-11-28 03:36 | disposition home or self-care (01) ==
LOC: EDUNIT# 00:45 → ER FS 00:48
DX: R10.13 Epigastric pain (principal); R11.0 Nausea; D72.829 Elevated white blood cell count, unspecified; R74.01 Elevation of levels of liver transaminase levels; E11.9 Type 2 diabetes mellitus without complications
CPT/HCPCS: 36415; 80053; 83690; 84703; 85025; 86141

== ENCOUNTER 2023-03-11 02:39 | Emergency (ER) | payer SELFPAY ==
[~2023-03-11] VITALS: Ht 160 cm; Wt 100.0 kg
[~2023-03-11 02:39] MED LIST changes: +ONDA4TAB11 SL; +PANT40TA2 PO
--- NOTE | 2023-03-11 02:46 | ED General ---
General Stated Complaint: BLOOD SUGER History of Present Illness Date Seen by Provider: Mar 11, 2023 Time Seen by Provider: 02:46 Initial Comments 23-year-old female presents for low blood sugar. Patient is a opb-xslaylt-xsdxgnjaj diabetic and has a monitor on her arm. She reports that her blood sugars are running a little bit high and then it rapidly dropped down into the 40s. She reports that she felt little dizzy and not well while it was low. She reports that it then stayed low and she does not normally go that low and it concerned her. Patient's only medication is metformin that she takes twice a day. It was recently restarted. Allergies and Home Medications Allergies Coded Allergies: No Known Drug Allergies (Unverified , 11/25/21) Patient Home Medication List Home Medication List Reviewed: Yes [Metformin] , PO BID WITH MEALS, (Reported) Entered as Reported by: AMANDA LUONG on 03/11/23332 Last Action: New Order Discontinued Medications Ondansetron (Ondansetron Odt) 4 Mg Tab.rapdis, 4 MG PO Q6H Discontinued Reason: Referral/FU Appt-Addtl Prescribed by: MEDINA STEELE on 11/25/21 1436 Last Action: Discontinued Ondansetron (Ondansetron Odt) 4 Mg Tab.rapdis, 4 MG SL Q4H PRN for NAUSEA/VOMITING Discontinued Reason: Referral/FU Appt-Addtl Prescribed by: SAHIL GARRISON on 11/28/22333 Last Action: Discontinued Pantoprazole Sodium (Protonix) 40 Mg Tablet.dr, 40 MG PO DAILY Discontinued Reason: Referral/FU Appt-Addtl Prescribed by: SAHIL GARRISON on 11/28/22333 Last Action: Discontinued Review of Systems Review of Systems Constitutional: see HPI, dizziness Respiratory: no symptoms reported Cardiovascular: No chest pain, No palpitations Gastrointestinal: no symptoms reported Musculoskeletal: no symptoms reported Skin: no symptoms reported Immunological/Allergic: no symptoms reported Past Xqtenvk-Qnlllr-Mqitjr Hx Past Medical History Surgeries: No Respiratory: No Cardiac: No Neurological: Yes Headaches /Migraines Reproductive Disorders: Yes Female Reproductive Disorders: Polycystic Ovarian Dis Genitourinary: No Gastrointestinal: No Musculoskeletal: No Endocrine: Yes Diabetes, Non-Insulin dep Cancer: No Psychosocial: No Physical Exam Vital Signs Vital Signs - First Documented 03/11/23 02:42 Temp 36.4 Pulse 95 Resp 18 B/P (MAP) 144/84 (104) Pulse Ox 100 O2 Delivery Room Air Capillary Refill : Height, Weight, BMI Height: '" Weight: lbs. oz. kg; 37.00 BMI Method: General Appearance: No Apparent Distress, WD/WN, Obese HEENT: PERRL/EOMI Neck: Full Range of Motion Respiratory: Lungs Clear, Normal Breath Sounds, No Accessory Muscle Use Cardiovascular: Regular Rate, Rhythm Extremity: Normal Capillary Refill, Normal Range of Motion Neurologic/Psychiatric: Alert, Oriented x3, No Motor/Sensory Deficits, Normal Mood/Affect, garment manufacturing supervisor II-XII Norm as Tested Skin: Normal Color, Warm/Dry Progress/Results/Core Measures Suspected Sepsis SIRS Temperature: Pulse: Respiratory Rate: Blood Pressure / Mean: Results/Orders Lab Results Laboratory Tests Test 03/11/23 02:57 Range/Units Glucometer 255 H 70-110 MG/DL My Orders Orders - DEVANG ATKINS DO Accucheck Stat ONCE (03/11/23 02:53) Vital Signs/I&O 03/11/23 03/11/23 02:42 03:07 Temp 36.4 36.4 Pulse 95 95 Resp 18 18 B/P (MAP) 144/84 (104) 144/84 Pulse Ox 100 100 O2 Delivery Room Air Room Air Capillary Refill : Progress Note : Progress Note Patient is a phc-shhojwc-xgmklahwh diabetic. Her blood sugar in the ER was in the 200s by fingerstick. I discussed with her the need to have her machine checked. She will need to follow with her primary care provider and dietitian for continued diabetic education. I did provide her some basic diabetic education. Patient did have some mild dizziness however this has been a longstanding recurring issue for at least 5 years. Recommend she continue to follow-up with her primary care provider for further evaluation of her longstanding dizziness. She was stable and discharged home. Departure Impression Primary Impression: Hypoglycemia associated with type 2 diabetes mellitus Disposition: 01 HOME, SELF-CARE Condition: Stable Departure-Patient Inst. Referrals: GOGO ELENA MD (PCP/Family) Primary Care Physician Patient Instructions: Low Blood Sugar, Adult (DC), Blood Glucose Monitoring, Low blood sugar in people with diabetes, Type 2 diabetes Add. Discharge Instructions: Please follow-up with your primary care provider as needed. Please keep your appointment with dietitian. DEVANG ATKINS DO Mar 11, 2023 02:46
[2023-03-11 03:07] VITALS: BP 144/84
[2023-03-11] MEDS ORDERED: Metformin PO (03:33)
== END 2023-03-11 03:07 | disposition home or self-care (01) ==
LOC: EDUNIT# 02:39 → ER FS 02:40
DX: E11.649 Type 2 diabetes mellitus with hypoglycemia without coma (principal); E66.9 Obesity, unspecified; Z68.37 Body mass index [BMI] 37.0-37.9, adult; Z79.84 Long term (current) use of oral hypoglycemic drugs
CPT/HCPCS: 82947